=== PATIENT | male | born 1955 | race Caucasian/White ===

== ENCOUNTER 2020-02-28 12:06 | Outpatient (REF) | payer OTHER, SELFPAY ==
[2020-02-28 12:29] VITALS: BP 115/68; PULSE 58; RESP 16; TEMP 36.8; O2SAT 98; BMI 21.4
== END 2020-02-28 12:07 | disposition home or self-care (01) ==
LOC: HO.MS 12:06
PROVIDERS: PCP Internal Medicine; Visit Provider Ophthalmology
PROC: (CPT 66821; principal; 2020-02-28 14:20)
DX: H26.492 Other secondary cataract, left eye (principal); Z96.1 Presence of intraocular lens; K21.9 Gastro-esophageal reflux disease without esophagitis
CPT/HCPCS: 66821